=== PATIENT | female | born 1945 | race Caucasian/White ===

== ENCOUNTER 2017-04-13 08:15 | Emergency (ER) | payer MEDICARE, BC ==
[2017-04-13 08:21] VITALS: RESP 16; TEMP 97.6
[2017-04-13] MEDS ORDERED: ONDANSETRON HCL 4 MG/2 ML SOL IV ONE (08:30)
[2017-04-13] MEDS ORDERED: ATROPINE 0.1 MG/ML SOL IV ONE (08:31)
[2017-04-13 08:48] LABS: BASOPHILS % (AUTO) 0 % (0-3); EOSINOPHILS % (AUTO) 0 % (0-9); HEMATOCRIT 46 % (35-47); MEAN CORPUSCULAR HGB CONC 32.8 gm/dl (32.0-36.0); MEAN CORPUSCULAR VOLUME 91 fL (81-99); MONOCYTES % (AUTO) 2.8 % (0-12); NEUTROPHILS % (AUTO) 87.9 % (37-80)
[2017-04-13] MEDS ORDERED: ATROPINE 0.4 MG/ML SOL IV ONE (08:53)
[2017-04-13] MEDS ORDERED: ONDANSETRON HCL 4 MG/2 ML SOL ONE (08:55)
[2017-04-13] MEDS ORDERED: ATROPINE SULFATE 1 MG/ML ONE (08:56)
[2017-04-13 09:02] LABS: ALBUMIN 3.9 gm/dl (3.4-5.0); POTASSIUM 4.5 mMol/L (3.5-5.1)
[2017-04-13] MEDS ORDERED: SODIUM CHLORIDE 0.9% 1000ML 1,000 ML IV ONE (09:11)
[2017-04-13 11:58] VITALS: BP 138/86; PULSE 115; O2SAT 94
== END 2017-04-13 11:30 | disposition home or self-care (01) | DRG 390 ==
LOC: ED 08:15
DX: K56.60 Unspecified intestinal obstruction (principal)
CPT/HCPCS: 74177; 80053; 85025; 96365; 96366; 96374; 96375; 99284; 99285; J0461; J2405; Q9967

== ENCOUNTER 2017-04-15 11:51 | Inpatient (IN) | payer MEDICARE, BC ==
[2017-04-15] MEDS ORDERED: SODIUM CHLORIDE 0.9% 1000ML 1,000 ML IV ONE (12:30)
[2017-04-15] MEDS ORDERED: ONDANSETRON HCL 4 MG/2 ML 4 MG in SODIUM CHLORIDE 0.9% 100 ML 100 ML IV ONE (13:23)
[2017-04-15] MEDS ORDERED: METFORMIN HCL 500 MG PO SCH (14:00)
[2017-04-15] MEDS: SODIUM CHLORIDE 0.9% FLUSH 10 ML SOL IV PRN ×3 (14:16→20:58)
[2017-04-15] MEDS: SODIUM CHLORIDE 0.9% 500 ML 500 ML IV ONE ×2 (14:20→14:22)
[2017-04-15] MEDS: HYDROMORPHONE 1 MG/ML SYRINGE IV PRN ×2 (15:19→19:20)
[2017-04-15] MEDS: DEXTROSE/SALINE 0.45/KCL 20MEQ 1,000 ML/1,000 ML SOL IV SCH (15:22)
[2017-04-15] MEDS: WARFARIN SODIUM 7.5 MG TAB PO SCH (17:19)
[2017-04-15] MEDS: ONDANSETRON HCL 4 MG/2 ML SOL IV PRN (20:58)
[2017-04-15] MEDS ORDERED: SIMVASTATIN 20 MG TAB PO SCH (21:00)
[2017-04-16] MEDS: DEXTROSE/SALINE 0.45/KCL 20MEQ 1,000 ML/1,000 ML SOL IV SCH ×3 (01:12→21:28)
[2017-04-16] MEDS: CHOLECALCIFEROL 1,000 IU TAB PO SCH (08:10)
[2017-04-16] MEDS: MULTIVITAMIN2 1 EA TAB PO SCH (08:11)
[2017-04-16] MEDS: METOPROLOL SUCCINATE 50 MG ER TAB PO SCH (08:11)
[2017-04-16] MEDS: ONDANSETRON HCL 4 MG/2 ML SOL IV PRN (12:25)
[2017-04-16] MEDS: HYDROMORPHONE 1 MG/ML SYRINGE IV PRN (12:30)
[2017-04-16] MEDS ORDERED: WARFARIN SODIUM 7.5 MG TAB PO SCH (18:00)
[2017-04-16 22:46] VITALS: RESP 18
[2017-04-17 07:48] LABS: CALCIUM 8.2 mg/dl (8.5-10.1); POTASSIUM 4.4 mMol/L (3.5-5.1)
[2017-04-17] MEDS ORDERED: APAP/HYDROCODONE 325/5 TAB PO PRN (07:58)
[2017-04-17] MEDS: DEXTROSE/SALINE 0.45/KCL 20MEQ 1,000 ML/1,000 ML SOL IV SCH (08:00)
[2017-04-17] MEDS: CHOLECALCIFEROL 1,000 IU TAB PO SCH (08:43)
[2017-04-17] MEDS: METOPROLOL SUCCINATE 50 MG ER TAB PO SCH (08:43)
[2017-04-17] MEDS: MULTIVITAMIN2 1 EA TAB PO SCH (08:43)
[2017-04-17] MEDS: SODIUM CHLORIDE 0.9% FLUSH 10 ML SOL IV SCH (16:42)
[2017-04-17] MEDS: WARFARIN SODIUM 7.5 MG TAB PO SCH (18:11)
[2017-04-18 00:31] VITALS: TEMP 98.3
[2017-04-18] MEDS: SODIUM CHLORIDE 0.9% FLUSH 10 ML SOL IV SCH ×2 (00:31→08:32)
[2017-04-18 08:29] VITALS: BP 133/81; PULSE 81; O2SAT 92
[2017-04-18] MEDS: METOPROLOL SUCCINATE 50 MG ER TAB PO SCH (08:32)
[2017-04-18] MEDS: CHOLECALCIFEROL 1,000 IU TAB PO SCH (08:32)
[2017-04-18] MEDS: MULTIVITAMIN2 1 EA TAB PO SCH (08:32)
[2017-04-18] MEDS ORDERED: INFLUENZA HIGH DOSE VACCINE 0.5 ML SUS IM ONE (08:43)
[2017-04-18] MEDS ORDERED: WARFARIN SODIUM 7.5 MG TAB PO SCH (18:00)
== END 2017-04-18 09:35 | disposition home or self-care (01) | DRG 390 ==
LOC: ACUTE CARE 11:54
PROVIDERS: ADMIT Family Medicine; ATTEND Family Medicine
PROC: F01ZDZZ Gait and/or Balance Assessment (ICD-10-PCS; principal; 2017-04-16)
PROC: F01ZCZZ Transfer Assessment (ICD-10-PCS; 2017-04-16)
PROC: F01ZBZZ Bed Mobility Assessment (ICD-10-PCS; 2017-04-16)
DX: K56.60 Unspecified intestinal obstruction (principal); I48.2 Chronic atrial fibrillation; E11.9 Type 2 diabetes mellitus without complications; Z90.49 Acquired absence of other specified parts of digestive tract; Z79.84 Long term (current) use of oral hypoglycemic drugs; E78.5 Hyperlipidemia, unspecified; Z79.01 Long term (current) use of anticoagulants; R53.1 Weakness
CPT/HCPCS: 36415; 80048; 82962; 90662; J2405; G0008; J1170

== ENCOUNTER 2019-01-18 11:26 | Outpatient (CLI) | payer BC ==
[2017-04-18 08:29] VITALS: O2SAT 92
== END 2019-01-18 11:27 | disposition home or self-care (01) | DRG 556 ==
LOC: CONVCARE 11:26
PROVIDERS: ATTEND Orthopaedic Surgery
DX: M25.562 Pain in left knee (principal); M25.561 Pain in right knee
CPT/HCPCS: 73562

== ENCOUNTER 2019-02-22 11:54 | Outpatient (CLI) | payer BC | END 2019-02-22 11:55 | disposition home or self-care (01) | LOC: CONVCARE 11:55 ==